=== PATIENT | female | born 1980 | race Caucasian/White ===

== ENCOUNTER → 2017-03-02 | Outpatient (CLI) | payer OTHER | LOC: FIMAGING 13:52 | PROVIDERS: ATTEND Obstetrics & Gynecology | DX: O09.521 Supervision of elderly multigravida, first trimester (principal); O09.811 Supervision of pregnancy resulting from assisted reproductive technology, first trimester; O20.8 Other hemorrhage in early pregnancy; Z3A.12 12 weeks gestation of pregnancy ==

== ENCOUNTER → 2017-04-20 | Outpatient (CLI) | payer OTHER | LOC: FIMAGING 09:42 | PROVIDERS: ATTEND Obstetrics & Gynecology | DX: O09.522 Supervision of elderly multigravida, second trimester (principal); O09.812 Supervision of pregnancy resulting from assisted reproductive technology, second trimester; O09.892 Supervision of other high risk pregnancies, second trimester; Z3A.19 19 weeks gestation of pregnancy ==

== ENCOUNTER → 2017-05-18 | Outpatient (CLI) | payer OTHER | LOC: FIMAGING 13:51 | PROVIDERS: ATTEND Obstetrics & Gynecology | DX: Z36 Encounter for antenatal screening of mother (principal); O09.522 Supervision of elderly multigravida, second trimester; O09.812 Supervision of pregnancy resulting from assisted reproductive technology, second trimester; Z3A.23 23 weeks gestation of pregnancy; O09.292 Supervision of pregnancy with other poor reproductive or obstetric history, second trimester ==

== ENCOUNTER → 2017-06-22 | Outpatient (CLI) | payer OTHER | LOC: FIMAGING 12:39 | PROVIDERS: ATTEND Obstetrics & Gynecology | DX: O09.523 Supervision of elderly multigravida, third trimester (principal); O09.813 Supervision of pregnancy resulting from assisted reproductive technology, third trimester; O09.293 Supervision of pregnancy with other poor reproductive or obstetric history, third trimester; Z3A.28 28 weeks gestation of pregnancy ==

== ENCOUNTER → 2017-06-29 | Outpatient (CLI) | payer OTHER | LOC: FIMAGING 14:02 | PROVIDERS: ATTEND Obstetrics & Gynecology | DX: O09.813 Supervision of pregnancy resulting from assisted reproductive technology, third trimester (principal); O09.523 Supervision of elderly multigravida, third trimester; O09.293 Supervision of pregnancy with other poor reproductive or obstetric history, third trimester; Z3A.29 29 weeks gestation of pregnancy ==

== ENCOUNTER → 2017-07-06 | Outpatient (CLI) | payer OTHER | LOC: FIMAGING 13:21 | PROVIDERS: ATTEND Obstetrics & Gynecology | DX: O09.813 Supervision of pregnancy resulting from assisted reproductive technology, third trimester (principal); O09.523 Supervision of elderly multigravida, third trimester; O36.5930 Maternal care for other known or suspected poor fetal growth, third trimester, not applicable or unspecified; O09.293 Supervision of pregnancy with other poor reproductive or obstetric history, third trimester; Z3A.30 30 weeks gestation of pregnancy ==

== ENCOUNTER → 2017-07-12 | Outpatient (CLI) | payer OTHER | LOC: FIMAGING 13:15 | PROVIDERS: ATTEND Obstetrics & Gynecology | DX: O09.813 Supervision of pregnancy resulting from assisted reproductive technology, third trimester (principal); O09.523 Supervision of elderly multigravida, third trimester; Z3A.31 31 weeks gestation of pregnancy ==

== ENCOUNTER → 2017-07-20 | Outpatient (CLI) | payer OTHER | LOC: FIMAGING 08:18 | PROVIDERS: ATTEND Obstetrics & Gynecology | DX: O09.523 Supervision of elderly multigravida, third trimester (principal); O09.813 Supervision of pregnancy resulting from assisted reproductive technology, third trimester; O09.293 Supervision of pregnancy with other poor reproductive or obstetric history, third trimester; Z3A.32 32 weeks gestation of pregnancy ==

== ENCOUNTER → 2017-07-27 | Outpatient (CLI) | payer OTHER | LOC: FIMAGING 13:04 | PROVIDERS: ATTEND Obstetrics & Gynecology | DX: O09.813 Supervision of pregnancy resulting from assisted reproductive technology, third trimester (principal); O09.523 Supervision of elderly multigravida, third trimester; O09.293 Supervision of pregnancy with other poor reproductive or obstetric history, third trimester; Z3A.33 33 weeks gestation of pregnancy ==

== ENCOUNTER → 2017-08-02 | Outpatient (CLI) | payer OTHER | LOC: FIMAGING 13:34 | PROVIDERS: ATTEND Obstetrics & Gynecology | DX: O36.5930 Maternal care for other known or suspected poor fetal growth, third trimester, not applicable or unspecified (principal); O09.523 Supervision of elderly multigravida, third trimester; O09.813 Supervision of pregnancy resulting from assisted reproductive technology, third trimester; Z3A.34 34 weeks gestation of pregnancy ==

== ENCOUNTER → 2017-08-12 | Outpatient (CLI) | payer OTHER | LOC: FIMAGING 13:27 | PROVIDERS: ATTEND Obstetrics & Gynecology | DX: O09.523 Supervision of elderly multigravida, third trimester (principal); Z3A.36 36 weeks gestation of pregnancy ==

== ENCOUNTER → 2017-08-16 | Outpatient (CLI) | payer OTHER | LOC: FIMAGING 13:11 | PROVIDERS: ATTEND Obstetrics & Gynecology | DX: O09.523 Supervision of elderly multigravida, third trimester (principal); O09.813 Supervision of pregnancy resulting from assisted reproductive technology, third trimester; Z3A.36 36 weeks gestation of pregnancy ==

== ENCOUNTER 2017-08-20 13:45 | Observation (INO) | payer OTHER | END 2017-08-20 14:50 | disposition home or self-care (01) | LOC: FLD 13:45 | PROVIDERS: ADMIT Obstetrics & Gynecology; ATTEND Obstetrics & Gynecology | DX: O09.293 Supervision of pregnancy with other poor reproductive or obstetric history, third trimester (principal); O09.523 Supervision of elderly multigravida, third trimester; Z3A.37 37 weeks gestation of pregnancy ==

== ENCOUNTER 2017-08-22 18:55 | Observation (INO) | payer OTHER ==
--- NOTE | 2017-08-22 20:21 | SOAPPROG ---
[facility] Progress Note Assessment/Plan: Assessment: IUP at 37 3/7 week History of IUFD at 40 weeks in 2016 Scheduled for IOL tomorrow SVE Options to place cook balloon overnight and remain in hospital with pain medication or return in AM for IOL Plan: Return tomorrow morning [id number] to start IOL Ultrasound tonight confirms cephalic presentation return precautions given 08/22/17 20:17 Subjective: 36 year old at 37 3/7 weeks gestation who presents for possible IOL or placement of jane or cook balloon. Exam vtx confirmed by ultrasound. Patient with a history of IUFD in 2016. Discussed option of staying overnight with cook balloon or going home and starting IOL in AM. Patient and family decided to go home. Reactive NST noted FHT 140's ICD10 Worksheet Patient Problems: Problems Problem Status Onset demise Acute Spontaneous vaginal delivery Acute
== END 2017-08-22 20:25 | disposition home or self-care (01) ==
LOC: FLD 18:55
PROVIDERS: ADMIT Obstetrics & Gynecology; ATTEND Obstetrics & Gynecology
DX: O47.03 False labor before 37 completed weeks of gestation, third trimester (principal); O09.293 Supervision of pregnancy with other poor reproductive or obstetric history, third trimester; O09.523 Supervision of elderly multigravida, third trimester; Z3A.37 37 weeks gestation of pregnancy

== ENCOUNTER 2017-08-23 08:00 | Inpatient (IN) | payer OTHER ==
[2017-08-23] MEDS ORDERED: OXYTOCIN 10 UNIT/ML VIAL ONE ×2 (08:12→13:04)
[2017-08-23] MEDS ORDERED: LR 500 ML IV PRN (08:36)
[2017-08-23] MEDS ORDERED: OXYTOCIN 30 UNIT in NS 500 ML IV SCH (08:45)
[2017-08-23] MEDS ORDERED: LR 1,000 ML IV PRN (09:30)
[2017-08-23] MEDS ORDERED: EPSOM SALT 454 GM TP PRN (09:30)
[2017-08-23] MEDS ORDERED: TERBUTALINE SULFATE 1 MG/ML VIAL IV PRN (09:30)
[2017-08-23] MEDS ORDERED: OLIVE OIL 118 ML BTL MISC PRN (09:30)
[2017-08-23 09:45] LABS: % IMMATURE GRANULYOCYTES 0.7 % (0.0-1.1); ABSOLUTE IMMATURE GRANULOCYTES 0.08 10^3/uL (0.00-0.10); ADD DIFF? NO; ADD MORPH? NO; ADD SCAN? NO; ATYPICAL LYMPHOCYTE FLAG 0 (0-99); FRAGMENT RBC FLAG 10 (0-99); HEMATOCRIT 36.4 % (38.0-47.0); HEMOGLOBIN 12.8 g/dL (12.6-16.3); LEFT SHIFT FLG 0 (0-99); LIPEMIA HEMOLYSIS FLAG 90 (0-99); MEAN CELL HEMOGLOBIN CONCENTR. 35.2 g/dL (32.4-36.7); MEAN CELL VOLUME 99.5 fL (81.5-99.8); MEAN PLATELET VOLUME 11.1 fL (8.7-11.7); PLATELET CLUMPS FLAG 10 (0-99); PLATELET COUNT 199 10^3/uL (150-400); RED BLOOD CELL COUNT 3.66 10^6/uL (4.18-5.33); RED CELL DISTRIBUTION WIDTH 13.4 % (11.5-15.2)
[2017-08-23] MEDS ORDERED: OLIVE OIL 118 ML BTL ONE (13:03)
[2017-08-23] MEDS ORDERED: LIDOCAINE 1% 300 MG/30 ML SDV ONE (13:03)
[2017-08-23] MEDS ORDERED: AMMONIA AROMATIC 1 EACH AMP IH ONE (13:03)
[2017-08-23] MEDS ORDERED: TERBUTALINE SULFATE 1 MG/ML VIAL ONE (13:04)
[2017-08-23] MEDS ORDERED: MISOPROSTOL 200 MCG TAB ONE (13:04)
--- NOTE | 2017-08-23 14:07 | OBPROG ---
Labor Progress Note Assessment/Plan: Assessment: Plan: Subjective/Intrapartum Course: 08/23/17 14:06 patient still comfortable. pitocin at 20 mu. arom. large amount of clear fluid noted. status reassuring. Objective: 08/23/17 08:30 Patient ABO/Rh O POSITIVE 08/23/17 08:30 - SVE Dilation (cm): 3 Effacement (%): 75 Station: -2 Membranes: AROM Amniotic Fluid Color: Clear - Contraction Pattern Assessment Current Contraction Pattern: Regular - FHR Assessment Moses FHR Pattern Variability: Moderate FHR Category: 1 - Procedures Non-surgical Procedures: Amniotomy Oxytocin Orders Assessment - Pre-Induction/Augmentation Assessment Gestational Age: 37 week(s) and 4 day(s) ICD10 Worksheet Patient Problems: Problems Problem Status Onset demise Acute Spontaneous vaginal delivery Acute
--- NOTE | 2017-08-23 21:56 | OBPROG ---
Labor Progress Note Assessment/Plan: Assessment: Plan: Subjective/Intrapartum Course: 08/23/17 14:06 patient still comfortable. pitocin at 20 mu. arom. large amount of clear fluid noted. status reassuring. 08/23/17 21:43 patient more uncomfortable. pitocin is at 22 mu. SVE 6/80/-2. laboring in multiple positions and ambulating regularly. will get in the tub. declines pain medication. Objective: 08/23/17 08:30 Patient ABO/Rh O POSITIVE 08/23/17 08:30 - SVE Dilation (cm): 6 Effacement (%): 80 Station: -2 Membranes: AROM Amniotic Fluid Color: Clear - Contraction Pattern Assessment Current Contraction Pattern: Regular - FHR Assessment Moses FHR Pattern Variability: Moderate FHR Category: 1 - Procedures Non-surgical Procedures: Amniotomy - AP Antepartum Course: 08/23/17 21:44 hx demise at 40 weeks with G1 secondary to true knot in the umbilical cord. conceived via IVF. hypothyroid. IUGR diagnosed at 28 weeks serial growth ultrasounds and dopplers. most recent growth ultrasound 36% MFM recommended delivery after 37 weeks. Oxytocin Orders Assessment - Pre-Induction/Augmentation Assessment Gestational Age: 37 week(s) and 4 day(s) ICD10 Worksheet Patient Problems: Problems Problem Status Onset demise Acute Spontaneous vaginal delivery Acute
[2017-08-23] MEDS ORDERED: METHYLERGONOVINE MAL 0.2 MG/ML INJ ONE (22:28)
[2017-08-23] MEDS ORDERED: HYDROCORTISONE 0.5% CREAM TP PRN (23:45)
[2017-08-23] MEDS ORDERED: ACETAMINOPHEN 325 MG TAB PO PRN (23:45)
[2017-08-23] MEDS ORDERED: SIMETHICONE 80 MG TAB CHEW PO PRN (23:45)
[2017-08-23] MEDS ORDERED: DOCUSATE SODIUM 100 MG CAP PO PRN (23:45)
--- NOTE | 2017-08-23 23:50 | OBDEL ---
Info Type: Vaginal Presentation at Delivery: Vertex L&D Analgesia/Anesthesia Type: None GBS+: No - Hospital Course Intrapartum: 08/23/17 14:06 patient still comfortable. pitocin at 20 mu. arom. large amount of clear fluid noted. status reassuring. 08/23/17 21:43 patient more uncomfortable. pitocin is at 22 mu. SVE 6/80/-2. laboring in multiple positions and ambulating regularly. will get in the tub. declines pain medication. 08/23/17 23:46 labored in the tub. rapid progress to complete. pushed with three contraction. Vaginal Delivery - Delivery Provider Delivery Physician/CNM: Addie Garcia - Labor and Delivery Onset of Contractions Date: 08/23/17 Onset of Contractions Type: Induced Rupture of Membranes Date: 08/23/17 Rupture of Membranes Time: 13:30 Rupture of Membranes Type: Artificial Amniotic Fluid Color: Clear Dilation Complete Date: 08/23/17 Dilation Complete Time: 22:03 Placenta Delivery Date: 08/23/17 Placenta Delivery Time: 22:26 Non-surgical Procedures: Amniotomy Laceration: 1st Degree Repair: 3-0 Vaginal Sponge Count Correct: Yes Vaginal Needle Count Correct: Yes Vaginal Sweep Performed: Yes EBL: 500 Delivery Events: None, Other (Specify) (marginal cord insertion) - Medications Labor Augmentation/Induction Methods Used: Pitocin Labor Augmentation/Induction Indication: Other (Specify) (hx of term demise) [place] Data Moses Delivery Date: 08/23/17 Delivery Time: 22:13 EFREN: 09/09/17 Gestational Age: 37 week(s) and 4 day(s) Sex of : Female Score (1 Min): 8 Score (5 Min): 9 ICD10 Worksheet Patient Problems: Problems Problem Status Onset demise Acute Spontaneous vaginal delivery Acute
[2017-08-23] MEDS: IBUPROFEN 600 MG TAB PO PRN (23:52)
[2017-08-24] MEDS: HYDROCODONE/APAP 5/325 TAB PO PRN ×2 (03:12→14:03)
[2017-08-24] MEDS: IBUPROFEN 600 MG TAB PO PRN ×3 (06:01→18:22)
--- NOTE | 2017-08-24 09:52 | OBPP ---
Progress Note Assessment/Plan: Assessment: 36 y/o PPD #1 s/p doing well. Plan: support, routine PPC. 08/24/17 09:51 Subjective/ Course: 08/24/17 09:50 Pt is doing well this am. She has min perineal pain and hemorrhoid pain controlled with Ibuprofen. Min lochia, ambulating, voiding without difficulty. Baby is doing well and they are working on breast feeding. Objective: 08/23/17 08:30 Patient ABO/Rh O POSITIVE 08/23/17 08:30 Temp Pulse Resp BP Pulse Ox 36.3 C 72 20 102/62 95 08/24/17 08:00 08/24/17 08:00 08/24/17 03:15 08/24/17 08:00 08/24/17 03:15 Uterine Position/Fundal Height: Umbilicus -2 Uterine Tone: Firm Physical Exam - Physical Exam Neck: non-tender, full range of motion, supple Respiratory: chest non-tender, lungs clear, normal breath sounds Cardiac/Chest: regular rate, rhythm Abdomen: normal bowel sounds Extremities: swelling (no), Matilda's sign (neg)
[2017-08-25] MEDS: IBUPROFEN 600 MG TAB PO PRN ×2 (00:48→06:17)
--- NOTE | 2017-08-25 14:11 | OBPP ---
Progress Note Assessment/Plan: Assessment: PPD 1 1/2 s/p h/o IUFD Plan: routine care 08/25/17 14:08 Subjective/ Course: 08/24/17 09:50 Pt is doing well this am. She has min perineal pain and hemorrhoid pain controlled with Ibuprofen. Min lochia, ambulating, voiding without difficulty. Baby is doing well and they are working on breast feeding. 08/25/17 14:08 Pt doing fine. anxious about BF and baby seeming fussy. bld is less. urinating fine. using ibuprofen Objective: 08/23/17 08:30 Patient ABO/Rh O POSITIVE 08/23/17 08:30 Temp Pulse Resp BP Pulse Ox 36.1 C 61 16 109/74 94 08/25/17 08:40 08/25/17 08:40 08/25/17 08:40 08/25/17 08:40 08/24/17 20:00 Uterine Position/Fundal Height: Umbilicus -1 Uterine Tone: Firm Physical Exam - Physical Exam Abdomen: non-tender, soft Extremities: non-tender, pedal edema (mild) Skin: normal color, warm/dry Neuro/Psych: alert, normal mood/affect
--- NOTE | 2017-08-26 09:32 | OBGCSDC ---
General Delivery Information - General Info : 2 Para: 2 Abortions: 0 Type: Vaginal L&D Analgesia/Anesthesia Type: None Admission Date: 08/23/17 Labs: Patient ABO/Rh O POSITIVE 08/23/17 08:30 Hct 36.4 % (38.0-47.0) L 08/23/17 08:30 - Hospital Course Antepartum: 08/23/17 21:44 hx demise at 40 weeks with G1 secondary to true knot in the umbilical cord. conceived via IVF. hypothyroid. IUGR diagnosed at 28 weeks serial growth ultrasounds and dopplers. most recent growth ultrasound 36% MFM recommended delivery after 37 weeks. Intrapartum: 08/23/17 14:06 patient still comfortable. pitocin at 20 mu. arom. large amount of clear fluid noted. status reassuring. 08/23/17 21:43 patient more uncomfortable. pitocin is at 22 mu. SVE 6/80/-2. laboring in multiple positions and ambulating regularly. will get in the tub. declines pain medication. 08/23/17 23:46 labored in the tub. rapid progress to complete. pushed with three contraction. : 08/24/17 09:50 Pt is doing well this am. She has min perineal pain and hemorrhoid pain controlled with Ibuprofen. Min lochia, ambulating, voiding without difficulty. Baby is doing well and they are working on breast feeding. 08/25/17 14:08 Pt doing fine. anxious about BF and baby seeming fussy. bld is less. urinating fine. using ibuprofen 08/26/17 09:27 S) Pt doing well, she is well. Reports min bleeding and cramping. She is ambulating and voiding without difficulty. @BS, supportive. Denies any depression. O) VSS Constitutional: A&Ox3, WNWF HEENT: normocephalic, atraumatic, supple neck Heart: RRR, no murmur Chest: CTA-B Abdomen: soft, nontender Uterus: firm @ U-1 lochia: min rubra perineum: healing well extremities: 1+edema, negative suellen's sign neuro: grossly normal A) [id number] s/p PPD#3 anemia P) d/c home today routine pp care start PO iron danger S&S discussed - aware to call if any occur RTO in 4/6weeks Vaginal - Delivery Provider Delivery Physician/CNM: Addie Garcia - Diagnosis Labor: Induced Rupture of Membranes Type: Artificial Amniotic Fluid Color: Clear Laceration: 1st Degree Repair: 3-0 Delivery Events: None, Other (Specify) (marginal cord insertion) - Procedures Non-surgical Procedures: Amniotomy - Delivery Non-surgical Procedures: Amniotomy EBL: 500 Data Moses Delivery Date: 08/23/17 Delivery Time: 22:18 EFREN: 09/09/17 Gestational Age: 38 week(s) and 0 day(s) Sex of Infant: Female Weight (gm): 2742 kg Score (1 Min): 8 Score (5 Min): 9 Discharge Information - Discharge Information Condition: Good Instruction/Follow Up: See Instruction Sheet, Four Weeks, Six Weeks
[2017-08-26 10:51] VITALS: BP 104/60; PULSE 61; RESP 14; TEMP 97.9; O2SAT 98
== END 2017-08-26 13:15 | disposition home or self-care (01) | DRG 775 ==
LOC: FLD 08:00 → FOB 08-24 00:55
PROVIDERS: ADMIT Obstetrics & Gynecology; ATTEND Obstetrics & Gynecology
PROC: 0HQ9XZZ Repair Perineum Skin, External Approach (ICD-10-PCS; principal; 2017-08-23)
PROC: 10E0XZZ Delivery of Products of Conception, External Approach (ICD-10-PCS; principal; 2017-08-23)
PROC: 3E033VJ Introduction of Other Hormone into Peripheral Vein, Percutaneous Approach (ICD-10-PCS; principal; 2017-08-23)
PROC: 10907ZC Drainage of Amniotic Fluid, Therapeutic from Products of Conception, Via Natural or Artificial Opening (ICD-10-PCS; principal; 2017-08-23)
DX: O70.0 First degree perineal laceration during delivery (principal); O90.81 Anemia of the puerperium; O99.284 Endocrine, nutritional and metabolic diseases complicating childbirth; E03.9 Hypothyroidism, unspecified; Z3A.38 38 weeks gestation of pregnancy; Z37.0 Single live birth
CPT/HCPCS: J2210; J3105

== ENCOUNTER 2017-10-04 07:10 | Day surgery (SDC) | payer OTHER ==
--- NOTE | 2017-10-01 14:08 | GHP ---
[f rep st] PREOP HISTORY AND PHYSICAL DATE OF ADMISSION: 10/04/2017 PLANNED PROCEDURE: Suction dilation and curettage for retained placenta. INDICATIONS: The patient is a 36-year-old 2, para 2-0-0-1, who is 6 weeks . She p resented for her visit yesterday complaining of persistent intermittent vaginal bleeding. A transvaginal ultrasound was performed which showed a 1.4 x 1.7 cm retained placental tissue at the fundus. Management options were reviewed with the patient, and the patient is electing to proceed w ith a suction dilation and curettage. Risks and benefits have been reviewed with the patient, and th e patient has been properly consented. MEDICAL HISTORY: Hypothyroidism, infertility. History of cervical dysplasia. MEDICATIONS: vitamins and levothyroxine. SURGICAL HISTORY: Tonsillectomy, hysteroscopy with polypectomy, wisdom tooth extraction. ALLERGIES: Codeine, Ceclor, and erythromycin. SOCIAL HISTORY: Patient is . She lives with her and their child. 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 She denies tobacco or drug use. She is drinking occasional alcoholic beverages since val bey. FAMILY MEDICAL HISTORY: Noncontributory. HEL[employer] DES[employer]ER HISTORY: Menarche age at 12. Periods every 28 days lasting 5 days. She is a 2, para 2-0-0-1. In 12/2015 she had a spontaneous vaginal delivery of an almost 40-week stillbirth. That p regnancy was conceived by IVF. The demise was attributed to a true knot in the cord. The most recen t was conceived by IVF. She had growth restriction at 1 point, and surveillance, and uncom plicated delivery. The patient does have a history of a LEEP. Repeat Paps have been negative. She denies any history of any other sexually transmitted diseases. REVIEW OF SYSTEMS: A 10-point review of systems is negative with the exception of the above-mentione d pertinent positives. She is and does have intermittent vaginal bleeding. PHYSICAL EXAMINATION: VITAL SIGNS: Stable. GENERAL APPEARANCE: Alert and oriented x3. HEART: Ra te regularly regular. LUNGS: Clear to auscultation bilaterally. ABDOMEN: Soft, nondistended, nont carla. No organomegaly is noted MUSCULOSKELETAL: Grossly intact. NEURO: Grossly intact. EXTREMIT IES: Reveal no calf tenderness or edema. PELVIC: Reveals a mobile midposition uterus with no adnex al masses. IMAGING: Pelvic ultrasound was described above. ASSESSMENT AND PLAN: A 36-year-old 2, para 2-0-0-1, who is 6 weeks with retained placenta. She will undergo a suction dilation and curettage for this procedure. /[id number]/MODL
[2017-10-04] MEDS ORDERED: LR 1,000 ML IV ONE (07:49)
[2017-10-04] MEDS ORDERED: CLINDAMYCIN 600 MG/DEXTROSE 50 ML IV ONE (07:52)
--- NOTE | 2017-10-04 09:12 | PDANEPAE ---
ANE History of Present Illness 6 wk retained placenta ANE Past Medical History Past Medical History: low thyroid - Pulmonary History Hx Sleep Apnea: No - Chronic Pain History Chronic Pain: No ANE Review of Systems Review of Systems: hypothyroid ANE Patient History - Allergies Allergies/Adverse Reactions: amoxicillin Allergy (Verified 01/16/16 07:52) cefaclor [From Ceclor] Allergy (Verified 01/16/16 07:52) codeine Allergy (Verified 01/16/16 07:52) erythromycin base Allergy (Verified 01/16/16 07:52) lactose Allergy (Verified 01/16/16 07:51) - Home Medications Home Medications: Cholecalciferol (Vitamin D3) [Vitamin D3] 1 cap PO DAILY 08/22/17 [Last Taken ] Levothyroxine [Synthroid 50 mcg (*)] 1 tab PO DAILY 08/22/17 [Last Taken ] Pepcid 10 mg PO DAILY 08/22/17 [Last Taken 08/22/17] 1 tab PO DAILY 08/22/17 [Last Taken 08/22/17] - NPO status NPO Since - Liquids (Date): 10/04/17 NPO Since - Liquids (Time): 03:00 (gatoraide) NPO Since - Solids (Date): 10/03/17 NPO Since - Solids (Time): 19:30 - Smoking Hx Smoking Status: Never smoked ANE Labs/Vital Signs - Labs Result Diagrams: 10/04/17 07:50 - Vital Signs Blood Pressure: 104/63 Heart Rate: 78 Respiratory Rate: 14 O2 Sat (%): 90 Height: 160.02 cm Weight: 58.967 kg ANE Physical Exam - Airway Neck exam: FROM Mallampati Score: Class 2 Mouth exam: normal dental/mouth exam - Pulmonary Pulmonary: no respiratory distress - Cardiovascular Cardiovascular: regular rate and rhythym - ASA Status ASA Status: II ANE Anesthesia Plan Anesthesia Plan: MAC
[2017-10-04] MEDS ORDERED: MEPERIDINE 25 MG/ML SYR IVP PRN (09:13)
[2017-10-04] MEDS ORDERED: NALOXONE HCL 0.4 MG/ML INJ IVP PRN (09:13)
[2017-10-04] MEDS ORDERED: ONDANSETRON 4 MG/2 ML VIAL IVP PRN (09:13)
[2017-10-04] MEDS ORDERED: fentaNYL 100 MCG/2 ML INJ IVP PRN (09:13)
[2017-10-04] MEDS ORDERED: HYDROCODONE/APAP 5/325 TAB PO PRN (09:13)
[2017-10-04] MEDS ORDERED: PHENYLEPHRINE HCL 100 MCG/ML SYR IVP PRN (09:13)
[2017-10-04] MEDS ORDERED: HYDROmorphONE/DILAUDID 1 MG/ML INJ IVP PRN (09:13)
[2017-10-04] MEDS ORDERED: LIDOCAINE 2% 5 ML SDV ONE (09:17)
[2017-10-04] MEDS ORDERED: PROPOFOL/EMULSION 500 MG/50 ML BOTTLE IV ONE (09:18)
[2017-10-04] MEDS ORDERED: fentaNYL 100 MCG/2 ML INJ ONE (09:18)
[2017-10-04] MEDS ORDERED: ONDANSETRON 4 MG/2 ML VIAL ONE (09:19)
--- NOTE | 2017-10-04 10:17 | POSTANESTH ---
Post Anesthetic Evaluation Cardiovascular Status: Normal, Stable Respiratory Status: Normal, Stable Level of Consciousness/Mental Status: Can Participate in Eval Pain Control: Adequate, Prn Tx Ordered Nausea/Vomiting Control: Adequate, Prn Tx Ordered Complications Possibly Related to Anesthesia: None Noted
[2017-10-04 10:38] VITALS: O2SAT 98
--- NOTE | 2017-10-04 11:10 | GOP ---
[f rep st] OPERATIVE REPORT DATE OF OPERATION: 10/04/2017 SURGEON: Addie Garcia, ANESTHESIA: MAC. ANESTHESIOLOGIST: Jon Vega MD PREOPERATIVE DIAGNOSIS: Retained placenta. POSTOPERATIVE DIAGNOSIS: Retained placenta. PROCEDURE PERFORMED: Suction dilation and curettage. FINDINGS: Mobile midposition uterus with no adnexal masses, retained products of conception. Post D and C ultrasound showed a thin endometrial stripe with small area of possible calcification, but no retained placenta. SPECIMENS: Retained placenta. ESTIMATED BLOOD LOSS: 10 cc. INDICATIONS: Patient is a 36-year-old 2, para 2-0-0-1, who is 6 weeks , who presen drake for her visit. She had complained of persistent intermittent vaginal bleeding. A vag inal ultrasound was performed which showed a 1.4 x 1.7 retained piece of placenta. Management option s were reviewed with the patient. Decision was made to proceed with a suction dilation and curettage . Risks and benefits were reviewed with the patient and the patient was properly consented. DESCRIPTION OF PROCEDURE: Patient was taken to the operating room with intravenous fluids in place. She was then placed on the operating room table in the dorsal supine position where general anesthes ia was obtained. She was then repositioned into the dorsal lithotomy position with the Yellofin stir rups and prepped and draped in normal sterile fashion. Exam under anesthesia revealed a mobile, midp osition uterus with no adnexal masses. The patient received 600 mg of clindamycin preoperatively. A speculum was then placed in the patient's vagina. An Allis clamp was used to grasp the anterior lip of the cervix and the cervix was then carefully dilated to allow for the introduction of a 12 curved suction curette. A circumferential curettage was performed and a small piece of placental tissue wa s noted in the specimen container. A sharp metal curette was then introduced and a circumferential c urettage was performed. One additional pass with the suction curette was then made. A transvaginal ultrasound was performed which showed a thin endometrial stripe and one small possible area of calcif ication, but no retained products of conception or placental tissue was noted. The instruments were then removed the patient's vagina. Bleeding was noted to be minimal. Patient was returned to the do rsal supine position where she was easily awoken from anesthesia. Sponge count was correct. The tom ent was transported to recovery room in stable condition. /[id number]/MODL
[2017-10-04 11:22] VITALS: BP 107/69; RESP 15
[2017-10-04 11:23] VITALS: TEMP 97.9
[2017-10-04 11:37] VITALS: PULSE 66
== END 2017-10-04 11:46 | disposition home or self-care (01) ==
LOC: FOBOP 07:10
PROVIDERS: ATTEND Obstetrics & Gynecology
PROC: 10D17ZZ Extraction of Products of Conception, Retained, Via Natural or Artificial Opening (ICD-10-PCS; principal; 2017-10-04)
DX: O72.2 Delayed and secondary postpartum hemorrhage (principal); E03.9 Hypothyroidism, unspecified
CPT/HCPCS: J2405; J2704; J3010